=== PATIENT | female | born 1970 | race American Indian/Alaskan Native ===

== ENCOUNTER 2021-07-21 08:18 | Emergency (ER) | payer OTHER ==
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
[2021-07-21] MEDS ORDERED: KETOROLAC 30 MG/1 ML INJ IM ONE (14:32)
[2021-07-21 14:48] VITALS: BP 132/88
== END 2021-07-21 14:47 | disposition home or self-care (01) ==
LOC: ED 08:18
DX: M54.9 Dorsalgia, unspecified (principal); R51.9 Headache, unspecified; V89.2XXA Person injured in unspecified motor-vehicle accident, traffic, initial encounter; Y93.89 Activity, other specified; Y92.89 Other specified places as the place of occurrence of the external cause; Y99.8 Other external cause status
CPT/HCPCS: 96372; 99282; J1885